=== PATIENT | female | born 1960 | race Caucasian/White ===

== ENCOUNTER 2019-06-24 15:43 | Emergency (ER) | payer MEDICAID ==
[~2019-06-24] VITALS: Ht 165.1 cm; Wt 77.1 kg
[~2019-06-24 15:43] MED LIST: ALDACTONE25 MG PO; BUTRANS1 EAC1 TD; COLACE100 MG PO; COMPAZINE10 MG PO; COREG25 MG PO; DETROL LA2 MG PO; LASIX 40 MG TAB40 M2 PO; NORVASC5 MG PO; ONDANSETRON HCL4 M2 PO; OXYCODONE HCL15 MG PO; PROTONIX40 M1 PO; RENVELA800 MG PO; ZANTAC 150MG T150 MG PO; [UNRECOGNIZED DRUG - OTHER]
[2019-06-24] MEDS ORDERED: LIPITOR 20 MG T20 M1 PO (16:03)
[2019-06-24] MEDS ORDERED: SENOKOT-S TABL1 EACH PO (16:03)
[2019-06-24] MEDS ORDERED: ASA81BEC PO (16:03)
[2019-06-24] MEDS ORDERED: PROZAC10 M1 PO (16:03)
[2019-06-24] MEDS ORDERED: VITAMIN D310 MC2 PO (16:04)
[2019-06-24 16:09] LABS: ICTOTEST (BILI CONFIRMATORY) Negative (Negative); URINE BILIRUBIN 1+ (Negative); URINE BLOOD 2+ (Negative); URINE CLARITY TURBID; URINE COLOR YELLOW; URINE GLUCOSE-RANDOM TRACE (Negative); URINE KETONES NEGATIVE (Negative); URINE LEUKOCYTES-REFLEX 2+ (Negative); URINE NITRITE-REFLEX NEGATIVE (Negative); URINE PROTEIN 3+ (Negative); URINE UROBILINOGEN 0.2 E.U./dl (0.2-1.0)
[2019-06-24 16:17] LABS: BACTERIA-REFLEX >30 Many /HPF (None Seen); CASTS None Seen /LPF (None Seen); CRYSTALS None Seen /LPF (None Seen); SQUAMOUS 0-3 Few /LPF (0-3); URINE WBC-REFLEX >25 Many /HPF (0-5); WBC CLUMPS Many (None Seen)
[2019-06-24 16:49] LABS: ABSOLUTE BASOPHILS 0.2 thou/uL (0.0-0.2); ABSOLUTE EOSINOPHILS 0.4 thou/uL (0.0-0.7); ABSOLUTE LYMPHOCYTES 1.6 thou/uL (0.8-5.3); ABSOLUTE MONOCYTES 0.9 thou/uL (0.0-1.2); ABSOLUTE NEUTROPHILS 9.7 thou/uL (1.6-8.1); BASOPHILS 1.2 %; EOSINOPHILS 3.4 %; HEMATOCRIT 25.7 % (37.0-47.0); HEMOGLOBIN 8.9 gm/dL (12.0-15.0); LYMPHOCYTES 12.7 %; MCH 32.2 pg (26.0-34.0); MCHC 34.6 g/dL (28.0-37.0); MCV 92.9 fL (80.0-100.0); MONOCYTES 7.2 %; MPV 8.2 fl. (7.2-11.1); NUCLEATED RBCS 0 /100WBC; PLATELET COUNT* 302 thou/uL (150-400); POLYS 75.5 %; RBC 2.76 mil/uL (4.20-5.00); RDW-CV 14.8 % (10.5-14.5); WBC 12.8 thou/uL (4.0-11.0)
[2019-06-24 16:59] LABS: CALCIUM 8.7 mg/dL (8.5-10.1); POTASSIUM 3.4 mmol/L (3.5-5.1)
[2019-06-24 17:03] LABS: ALBUMIN 3.3 g/dL (3.4-5.0); TOTAL BILIRUBIN 0.3 mg/dL (<0.1-1.0); TOTAL PROTEIN 7.1 g/dL (6.4-8.2)
[2019-06-24] MEDS ORDERED: KEFLEX500 M1 PO (17:33)
[2019-06-24 17:40] VITALS: BP 101/51
--- NOTE | 2019-06-25 09:18 | EKG ---
[place] [address] ELECTROCARDIOGRAM REPORT Name: NALLELY HERNANDEZ Room: [facility]#: [id number] Admission: 06/24/19 Attend Phys: Discharge: 06/24/19 Date of : 60 Date of Service: 06/24/191709 Report #: [id number] THIS REPORT FOR: //name// [facility] ED Test Date: 2019-06-24 Test Time: 17:10:51 Pat Name: NALLELY HERNANDEZ Department: Room: Gender: F [employer] Operator: : 1960 Requested By: Xavi Cali Order Number: [id number] MD: Rd Serrato Measurements Intervals [place] Rate: 70 P: 63 ND: 199 QRS: 13 QRSD: 107 T: 48 QT: 409 QTc: 442 Interpretive Statements Sinus rhythm No previous ECG available for comparison Electronically Signed On 06-25-2019 9:17:41 [employer] by Rd Serrato [email or web address] <ELECTRONICALLY SIGNED> By: Rd Serrato MD, [facility] 06/25/[address] S[address] MD, FACC /EPI
== END 2019-06-24 17:41 | disposition home or self-care (01) ==
LOC: M.ERS 15:43
PROVIDERS: Physician Assistant
DX: N18.9 Chronic kidney disease, unspecified (principal); N39.0 Urinary tract infection, site not specified; Z99.2 Dependence on renal dialysis; Z88.8 Allergy status to other drugs, medicaments and biological substances